=== PATIENT | male | born 1990 | race Caucasian/White ===

== ENCOUNTER 2020-07-12 14:32 | Outpatient (REF) | payer OTHER, SELFPAY ==
--- NOTE | 2020-07-12 | US_ITS ---
EXAMINATION: US THYROID CLINICAL INFORMATION: Thyroid cancer. Thyroid removed in 2017. COMPARISON: None TECHNIQUE: Linear transducer harding-scale and color Doppler examination with attention to the region of anterior thyroid neck. FINDINGS: Imaging through the neck reveals a few new lymph nodes. RIGHT NECK: 5A lymph node measures 1.4 x 0.4 x 1.9 cm. It has a normal thick cortex and echogenic medulla. 5A lymph node in the right neck measures 1.0 x 0.5 x 1.7 cm. It has normal echogenic medulla and normal hypoechoic cortex. LEFT NECK: 5A lymph node measures 1.3 x 0.6 x 1.3 cm. It has normal hypoechoic cortex and echogenic medulla. No additional lymph nodes seen on either neck. No residual thyroid tissue seen. IMPRESSION: Benign bilateral neck lymph nodes seen. No residual thyroid tissue seen in thyroid bed.
== END 2020-07-12 14:33 | disposition home or self-care (01) ==
LOC: HO.US 14:32
PROVIDERS: Visit Provider Internal Medicine Endocrinology, Diabetes & Metabolism
DX: C73 Malignant neoplasm of thyroid gland (principal)
CPT/HCPCS: 76536

== ENCOUNTER 2020-12-20 12:32 | Outpatient (REF) | payer OTHER, SELFPAY ==
[2020-12-20 14:25] LABS: Free T4 (Free Thyroxine) 1.12 ng/dL (0.71-1.85); Thyroid Stimulating Hormone 0.99 uIU/mL (0.32-4.0); Vitamin D 25-OH Total 65.3 ng/mL (>30)
[2020-12-21 09:37] LABS: Triiodothyronine T3 Total 123 ng/dL (76-181)
[2021-01-15 11:14] LABS: Thyroglobulin Antibody <1
== END 2020-12-20 12:33 | disposition home or self-care (01) ==
LOC: CF 12:32
PROVIDERS: PCP Internal Medicine; Visit Provider Internal Medicine Endocrinology, Diabetes & Metabolism
DX: E89.0 Postprocedural hypothyroidism (principal); M79.7 Fibromyalgia; Z85.850 Personal history of malignant neoplasm of thyroid; Z79.899 Other long term (current) drug therapy
CPT/HCPCS: 36415; 82306; 84432; 84439; 84443; 84480; 86800; 99212

== ENCOUNTER → 2021-09-05 10:18 | Outpatient (BNVA) | payer OTHER, SELFPAY | PROVIDERS: PCP Internal Medicine; Visit Provider Internal Medicine | DX: E55.9 Vitamin D deficiency, unspecified (principal); Z85.850 Personal history of malignant neoplasm of thyroid | CPT/HCPCS: 99212 ==

== ENCOUNTER → 2021-11-30 12:17 | Outpatient (BNVA) | payer OTHER, SELFPAY | PROVIDERS: PCP Internal Medicine; Visit Provider Internal Medicine ==